=== PATIENT | male | born 1995 | race Caucasian/White ===

== ENCOUNTER → 2017-01-10 17:52 | Emergency (ER) | payer MEDICAID, OTHER ==
[2017-01-10 18:04] VITALS: BP 138/62
== END | disposition left against medical advice (07) ==
LOC: ED 17:52
DX: R10.30 Lower abdominal pain, unspecified (principal); Z53.21 Procedure and treatment not carried out due to patient leaving prior to being seen by health care provider

== ENCOUNTER 2017-08-03 15:20 | Emergency (ER) | payer MEDICAID, OTHER ==
--- NOTE | 2017-08-03 16:42 | UC ---
Knee Pain HPI - HPI Summary HPI Summary: 22 y/o male presents to the urgent care c/o Rt knee pain and swelling s/p slipping while carrying lifting furniture on 07/30/2017. Pt states his knee buckled and he fell. He took Ibuprofen, applied ice to alleviate symptoms. However today he was sitting and his RT lower leg felt numb with radiating pain to his knee. Pain is 8/10 with movement. Mild tingling over the medial side of the RT lower leg. Pt denies fever, SOB, chest pain, abdominal pain, N/V/D. - History of Current Complaint Chief Complaint: UCRespiratory Stated Complaint: knee injury Time Seen by Provider: 08/03/17 16:32 Hx Obtained From: Patient Onset/Duration: Sudden Onset, Lasting Days - 5 days, Still Present, Worse Since - today Severity Initially: Moderate Severity Currently: Moderate Pain Intensity: 8 Pain Scale Used: 0-10 Numeric Character: Sharp Aggravating Factor(s): Movement, Prolonged Standing, Stairs Alleviating Factor(s): Rest, OTC Meds Associated Signs And Symptoms: Positive: Numbness, Tingling - medial side of RT lower leg. Negative: Swelling, Redness, Bruising, Fever, Weakness Able to Bear Weight: Yes - Risk Factors Septic Arthritis Risk Factor: Negative Gout Risk Factor: Negative - Allergies/Home Medications Allergies/Adverse Reactions: Allergies Allergy/AdvReac Type Severity Reaction Status Date / Time Cefuroxime [From Ceftin] Allergy Unknown Unknown Verified 08/03/17 15:32 Reaction Details Home Medications: Home Medications Acetaminophen [APAP] 325 mg PO Q6H PRN 08/03/17 [History Confirmed 08/03/17] PMH/Surg Hx/FS Hx/Imm Hx Previously Healthy: Yes Psychological History: Bipolar Disorder Other Psychological History: ADHD - Surgical History Surgical History: Yes Surgery Procedure, Year, and Place: HERNIA [facility] - Family History Known Family History: Positive: Cardiac Disease, Hypertension, Diabetes Family History: No FHx GERD - Social History Occupation: Employed Full-time Lives: With Family Alcohol Use: None Substance Use Type: None Smoking Status (MU): Never Smoked Tobacco Review of Systems Constitutional: Negative Skin: Negative Eyes: Negative ENT: Negative Respiratory: Negative Cardiovascular: Negative Gastrointestinal: Negative Genitourinary: Negative Motor: Negative Neurovascular: Negative - RT knee Musculoskeletal: Decreased ROM, Other: - RT knee pain, swelling s/p slipping Neurological: Negative Psychological: Negative Is Patient Immunocompromised?: No All Other Systems Reviewed And Are Negative: Yes Physical Exam Triage Information Reviewed: Yes Vital Signs: Initial Vital Signs Temp 98.0 F 08/03/17 15:27 Pulse 68 08/03/17 15:27 Resp 16 08/03/17 15:27 BP 109/69 08/03/17 15:27 Pulse Ox 100 08/03/17 15:27 - Additional Comments Vital Signs Reviewed: Yes General: well developed, well nourished male sitting in the examining table w/o any apparent distress Eyes: Positive: Conjunctiva Clear - PERRLA, EOMI, fundi grossly normal ENT: Positive: Normal ENT inspection, Hearing grossly normal, Pharynx normal, TMs normal Neck: Positive: Supple, Nontender, No Lymphadenopathy Respiratory: Positive: Chest nontender, Lungs clear, Normal breath sounds, No respiratory distress Cardiovascular: Positive: RRR, No Murmur, Pulses Normal, Brisk Capillary Refill Abdomen Description: Positive: Nontender, No Organomegaly, Soft. Negative: CVA Tenderness (R), CVA Tenderness (L) Bowel Sounds: Positive: Present Musculoskeletal: Positive: Strength Intact, No Edema, Other: - Knee: Pt is able to bear weight and ambulate with mild limping. No surface trauma, soft tissue swelling, or obvious effusion. No overlying erythema or warmth. The RT knee is without obvious asymmetry or deformity when compared with the LF knee. Decreased ROM of RT knee due to pain. No tenderness to palpation of the patella , no effusion or ballottement. No tenderness over the infrapatellar tendon. Point tenderness over the medial joint line, No tenderness over the proximal fibular head, No tenderness, fullness or mass of the popliteal fossa. No quadriceps tenderness. No laxity of the ACL. PCL, MCL, or LCL. no collateral ligament laxity to valgus or varus stress. Negative Eze/Drawer sign. Negative Erlinda. Distal motor and neurovascular status intact. Neurological Exam: Normal Psychological Exam: Normal Skin Exam: Normal Knee Pain Course/Dx - Course Course Of Treatment: 22 y/o male presents to the urgent care c/o Rt knee pain and swelling s/p slipping while carrying lifting furniture on 07/30/2017. Pt states his knee buckled and he fell. He took Ibuprofen, applied ice to alleviate symptoms. However today he was sitting and his RT lower leg felt numb with radiating pain to his knee. Pain is 8/10 with movement. Mild tingling over the medial side of the RT lower leg. Pt denies fever, SOB, chest pain, abdominal pain, N/V/D.Hx obtained. RT kneee X-ray ordered: No frqacture of Rt knee noted as per radilogist. Pt's knee immobilized with knee immobilizer since PT feeling numbness. Rx Naproxen PO for pain. Advised RICE. Avoid strenuous exercise or standing for long period of time. If not improvement of symptoms to f/u with Orthopedic Dr Saxena or PCP in 1 week for further evaluation and treatment. PT understood and agreed with D/C instructions. - Differential Dx/Diagnosis Differential Diagnosis/HQI/PQRI: Abrasion, Contusion, Fracture (Closed), Internal Derangement Of Knee, Patellofemoral Syndrome, Sprain, Strain, Tendonitis Provider Diagnoses: 1 Acute RT knee pain s/p injury Discharge - Discharge Plan Condition: Stable Disposition: HOME Prescriptions: Naproxen [Naproxen 500 mg] 500 mg PO Q8H PRN #30 tab PRN Reason: Pain Patient Education Materials: Knee Sprain (ED) Forms: *Work Release Referrals: [facility] [Outside] - 3 Days Avelino Saxena MD [Medical Doctor] - 3 Days Additional Instructions: 1-Please take medications as directed to alleviate pain and swelling. 2-Please apply ice, keep your knee immobilized with the splint. 3- Please f/u with Orthopedic or your PCP in 3 days if not improvement of symptoms for further evaluation and treatment.
[2017-08-03] MEDS ORDERED: Naproxen TAB* 250 MG PO ONE (16:44)
[2017-08-03 17:33] VITALS: BP 126/64
--- NOTE | 2017-08-03 17:33 | RAD ---
Indication: Right knee pain. 4 views of the right knee demonstrates no fracture. No other bone or joint abnormality is identified. IMPRESSION: No fracture of the right knee is noted.
== END 2017-08-03 18:10 | disposition home or self-care (01) ==
LOC: UCEAST 15:20
DX: M25.561 Pain in right knee (principal); R20.0 Anesthesia of skin; R20.2 Paresthesia of skin; F31.9 Bipolar disorder, unspecified; F90.9 Attention-deficit hyperactivity disorder, unspecified type; Z88.1 Allergy status to other antibiotic agents
CPT/HCPCS: 99213; A9270-GY; G0463

== ENCOUNTER 2019-01-08 15:20 | Emergency (ER) | payer OTHER ==
[2019-01-08 15:40] VITALS: BP 129/65
--- NOTE | 2019-01-08 16:14 | UC ---
Lower Extremity/Ankle HPI - HPI Summary HPI Summary: 23-year-old male presents with sudden onset of sharp, tearing right groin pain while running 2 nights ago. States pain was initially so severe caused him to fall to the ground. No injuries from the fall. States he was immediately able to walk and bear weight on it although with pain. States pain is constant but minimal while resting and worsens with any type of walking or weightbearing. Denies abdominal pain, testicular pain or swelling, dysuria, frequency, urgency , hematuria, weakness, numbness, or tingling. - History of Current Complaint Chief Complaint: UCGeneralIllness Stated Complaint: RT LEG INJURY Time Seen by Provider: 01/08/19 15:36 Hx Obtained From: Patient Pain Intensity: 6 - Allergies/Home Medications Allergies/Adverse Reactions: Allergies Allergy/AdvReac Type Severity Reaction Status Date / Time cefuroxime [From Ceftin] Allergy Severe Swelling Verified 01/08/19 15:40 PMH/Surg Hx/FS Hx/Imm Hx Previously Healthy: Yes - Denies significant PMH - Surgical History Surgical History: Yes Surgery Procedure, Year, and Place: H[facility]IA [facility] - Family History Known Family History: Positive: Cardiac Disease, Hypertension, Diabetes, Other - positive for FMH of contusion Family History: No FHx GERD - Social History Occupation: Employed Full-time Lives: With Family Alcohol Use: Rare Substance Use Type: None Smoking Status (MU): Light Every Day Tobacco Smoker Review of Systems All Other Systems Reviewed And Are Negative: Yes Constitutional: Positive: Negative Skin: Positive: Negative Respiratory: Positive: Negative Cardiovascular: Positive: Negative Gastrointestinal: Positive: Negative Genitourinary: Positive: Negative Motor: Negative: Weakness Neurovascular: Negative: Decreased Sensation Musculoskeletal: Positive: Myalgia - See HPI Neurological: Positive: Negative Is Patient Immunocompromised?: No Physical Exam - Summary Physical Exam Summary: GENERAL APPEARANCE: Well developed, well nourished, alert and cooperative, and appears to be in no acute distress. CARDIAC: Normal S1 and S2. No S3, S4 or murmurs. Rhythm is regular. There is no peripheral edema, cyanosis or pallor. Extremities are warm and well perfused. Capillary refill is less than 2 seconds. Peripheral pulses intact. LUNGS: Clear to auscultation without rales, rhonchi, wheezing or diminished breath sounds. ABDOMEN: Positive bowel sounds. Soft, nondistended, nontender. No guarding or rebound. No masses or hepatosplenomegally. MUSKULOSKELETAL: ROM intact to all extremities. No joint erythema or tenderness. Normal muscular development. Tenderness with palpation over the right proximal sartorius without gross deformity or spasm. Limping gait. Circulation and sensation intact. SKIN: Skin normal color, texture and turgor with no lesions or eruptions. Triage Information Reviewed: Yes Vital Signs: Initial Vital Signs Temp 98.9 F 01/08/19 15:35 Pulse 62 01/08/19 15:35 Resp 12 01/08/19 15:35 BP 129/65 01/08/19 15:35 Pulse Ox 99 01/08/19 15:35 Vital Signs Reviewed: Yes Lower Extremity Course/Dx - Course Course Of Treatment: 23-year-old male presents with sudden onset of sharp, tearing right groin pain while running 2 nights ago. States pain was initially so severe caused him to fall to the ground. No injuries from the fall. States he was immediately able to walk and bear weight on it although with pain. States pain is constant but minimal while resting and worsens with any type of walking or weightbearing. Denies abdominal pain, testicular pain or swelling, dysuria, frequency, urgency , hematuria, weakness, numbness, or tingling. Afebrile. Vital signs stable. Patient had tenderness with palpation over the right proximal sartorius without gross deformity or spasm. Limping gait. Circulation and sensation intact. Remainder of exam was unremarkable. Recommending conservative treatment for a muscle strain. Patient is to follow-up with sports medicine in 5 days if symptoms do not improve anticipatory guidance and warning symptoms reviewed with the patient. Verbalizes understanding and agrees with plan of care. - Differential Dx/Diagnosis Differential Diagnosis/HQI/PQRI: Contusion, Phlebitis, Strain, Tenosynovitis Provider Diagnosis: Strain of muscle of right groin region Discharge - Sign-Out/Discharge Documenting (check all that apply): Patient Departure All imaging exams completed and their final reports reviewed: No Studies - Discharge Plan Condition: Stable Disposition: HOME Patient Education Materials: Muscle Strain (ED) Forms: *Work Release Referrals: No Primary Care Phys,NOPCP [Primary Care Provider] - Chris Dawson MD [Medical Doctor] - Additional Instructions: Your history and exam are consistent with a muscle strain. Rest the leg as much as possible. You may continue to walk and bear weight but should avoid strenuous activities or activities that cause pain. Apply ice to the affected area for 15-20 minutes at least 4 times a day to help with the pain and swelling. Elevate the leg to help reduce swelling. Take acetaminophen (Tylenol) or ibuprofen (Advil, Motrin) according to directions as needed for pain. Follow up with Sports Medicine in 5 days if symptoms do not improve. Seek immediate medical attention if you have severe pain not managed with pain medication, you are unable to walk or bear any weight, develop numbness or tingling in the leg, foot, or toes, or have any worsening of symptoms. - Billing Disposition and Condition Condition: STABLE Disposition: Home
== END 2019-01-08 16:25 | disposition home or self-care (01) ==
LOC: UCEAST 15:20
DX: S76.811A Strain of other specified muscles, fascia and tendons at thigh level, right thigh, initial encounter (principal); Y93.02 Activity, running; Y92.9 Unspecified place or not applicable; F17.210 Nicotine dependence, cigarettes, uncomplicated
CPT/HCPCS: 99211; G0463

== ENCOUNTER 2019-03-15 22:18 | Emergency (ER) | payer OTHER ==
--- NOTE | 2019-03-15 22:46 | ED ---
Back Pain - HPI Summary HPI Summary: This patient is a 23 year old M presenting to [facility] accompanied by mother with a chief complaint of back pain since 02/08/19. Pt works at [employer]. On 02/08/19, pt hurt his back, as he caught falling resident because he didnt want her to hit head. As he caught the pt, he felt a sharp pain in lower back. Pt had off from work. He was feeling little better in the morning, but over the day the pain worsened. Then when he went into work on 02/10/19, he was in so much pain that it affected his ability to do his work. Pt went to [facility] on 02/11/19 and they told him he may have a herniated disk, and prescribed him pain medication. Pt finds it very painful to walk. Today, when pt went to get a glass of water, he was holding himself up by his surroundings. On his way back to the bedroom his legs gave out and he had to catch himself on wall. Patient reports pain sensation in legs (electric pulse going through. Patient denies incontinence. Pt has no medical problem, and no PMHx of back issues. Pt has a FHx of slip disc. Per triage, the patient rates the pain 8/10 in severity. - History of Current Complaint Chief Complaint: EDBackInjuryPain Stated Complaint: BACK INJURY PER PT Time Seen by Provider: 03/15/19 22:36 Hx Obtained From: Patient Onset/Duration: Gradual Onset, Lasting Days, Still Present Onset/Duration: Started Days Ago, Still Present Timing: Constant, Lasting Days Back Pain Location: Is Diffuse Severity Initially: Moderate Severity Currently: Severe Pain Intensity: 8 Pain Scale Used: 0-10 Numeric Character: Sharp Aggravating Symptom(s): Walking Alleviating Symptom(s): Nothing Associated Signs And Symptoms: Positive: Other - pain sensation in legs. Negative: Bladder Incontinence, Bowel Incontinence - Allergies/Home Medications Allergies/Adverse Reactions: Allergies Allergy/AdvReac Type Severity Reaction Status Date / Time cefuroxime [From Ceftin] Allergy Severe Swelling Verified 01/08/19 15:40 Home Medications: Home Medications Cyclobenzaprine TAB* [Flexeril 10 MG TAB*] 10 mg PO TID PRN 03/15/19 [History Confirmed 03/15/19] Naproxen 500 mg PO BID 03/15/19 [History Confirmed 03/15/19] PMH/Surg Hx/FS Hx/Imm Hx Endocrine/Hematology History: Denies: Hx Diabetes, Hx Thyroid Disease Cardiovascular History: Denies: Hx Hypertension, Hx Pacemaker/ICD Respiratory History: Reports: Hx Asthma - as a child Denies: Hx Chronic Obstructive Pulmonary Disease (COPD) GI History: Denies: Hx Ulcer Sensory History: Denies: Hx Hearing Aid Psychiatric History: Reports: Hx Bipolar Disorder Denies: Hx Panic Disorder - Surgical History Surgery Procedure, Year, and Place: HERNIA AN Infectious Disease History: No Infectious Disease History: Denies: Hx Hepatitis, Hx Human Immunodeficiency Virus (HIV), History Other Infectious Disease, Traveled Outside the [place] in Last 30 Days - Family History Known Family History: Positive: Cardiac Disease, Hypertension, Diabetes, Other - positive for FMH of contusion Family History: No FHx GERD - Social History Occupation: Employed Full-time Alcohol Use: Rare Hx Substance Use: No Substance Use Type: Reports: None Hx Tobacco Use: No Smoking Status (MU): Light Every Day Tobacco Smoker Review of Systems Positive: Other - Back pain, pain sensation in legs Negative: incontinence All Other Systems Reviewed And Are Negative: Yes Physical Exam - Summary Physical Exam Summary: Appearance: Well-appearing, Well-nourished, lying in bed comfortably Skin: Warm, dry, no obvious rash Eyes: sclera anicteric, no conjunctival pallor ENT: mucous membranes moist, pharynx appears normal Neck: Supple, nontender Respiratory: Clear to auscultation, no signs of respiratory distress Cardiovascular: Normal S1, S2. No murmurs. Normal distal pulses in tibial and radial bilaterally. Abdomen: Soft, nontender, normal active bowel sounds present Musculoskeletal: Normal, Strength/ROM Intact Neurological: A&Ox3, awake and alert, mentation is normal, speech is fluent and appropriate; reflexes of knee are 2+ and symmetric; no clonus of ankle; no gross sensory deficits or motor deficits. Psychiatric: affect is normal, does not appear anxious or depressed Triage Information Reviewed: Yes Vital Signs On Initial Exam: Initial Vitals Temp Pulse Resp BP Pulse Ox 98.7 F 68 16 140/70 99 03/15/19 22:20 03/15/19 22:20 03/15/19 22:20 03/15/19 22:20 03/15/19 22:20 Vital Signs Reviewed: Yes Diagnostics - Vital Signs Vital Signs Temp Pulse Resp BP Pulse Ox 03/15/19 22:20 98.7 F 68 16 140/70 99 - Laboratory Lab Statement: Any lab studies that have been ordered have been reviewed, and results considered in the medical decision making process. Back Pain Course/Dx - Course Course Of Treatment: This patient is a 23 year old M presenting to [facility] accompanied by mother with a chief complaint of back pain since 02/08/19. Pt works at [employer]. On 02/08/19, pt hurt his back, as he caught falling resident because he didnt want her to hit head. As he caught the pt, he felt a sharp pain in lower back. Pt had 02/09/19 off from work. He was feeling little better in the morning, but over the day the pain worsened. Then when he went into work on 02/10/19, he was in so much pain that it affected his ability to do his work. Pt went to [place] [facility] on 02/11/19 and they told him he may have a herniated disk, and prescribed him pain medication. Pt finds it very painful to walk. Today, when pt went to get a glass of water, he was holding himself up by his surroundings. On his way back to the bedroom his legs gave out and he had to catch himself on wall. Patient reports pain sensation in legs (electric pulse going through. Patient denies incontinence. Pt has no PMHx of back issues.. Per triage, the patient rates the pain 8/10 in severity. Physical exam findings are nml. Patient will be discharged with follow up from PCP. The patient is agreeable with this plan. - Diagnoses Provider Diagnoses: Lumbar strain Discharge ED - Sign-Out/Discharge Documenting (check all that apply): Patient Departure - Discharge Patient Received Moderate/Deep Sedation with Procedure: No - Discharge Plan Condition: Good Disposition: HOME Prescriptions: oxyCODONE/Acetamin 5/325 MG* [Percocet 5/325 TAB*] 2 tab PO Q4H PRN #20 tab MDD 6 PRN Reason: Pain - Severe Patient Education Materials: Low Back Strain (ED) Forms: *Work Release Referrals: Charanjit Germain MD [Medical Doctor] - As Soon As Possible - Billing Disposition and Condition Condition: GOOD Disposition: Home - Attestation Statements Document Initiated by Guillaume: Yes Documenting Scribe: Louann Ruiz Provider For Whom Guillaume is Documenting (Include Credential): Jon Clark MD Scribe Attestation: Louann Wang, scribed for Jon Clark MD on 03/16/19 at 0514. Scribe Documentation Reviewed: Yes Provider Attestation: The documentation as recorded by the Louann carranza accurately reflects the service I personally performed and the decisions made by me, Jon Clark MD Status of Scribe Document: Viewed
[2019-03-16 00:06] VITALS: BP 120/65
== END 2019-03-16 00:05 | disposition home or self-care (01) ==
LOC: ED 22:18
DX: S39.012A Strain of muscle, fascia and tendon of lower back, initial encounter (principal); X50.9XXA Other and unspecified overexertion or strenuous movements or postures, initial encounter; Y92.89 Other specified places as the place of occurrence of the external cause; Y99.0 Civilian activity done for income or pay; J45.909 Unspecified asthma, uncomplicated; F31.9 Bipolar disorder, unspecified; F17.200 Nicotine dependence, unspecified, uncomplicated; Z79.899 Other long term (current) drug therapy; Z88.1 Allergy status to other antibiotic agents
CPT/HCPCS: 99282

== ENCOUNTER 2019-05-05 15:45 | Emergency (ER) | payer OTHER ==
--- NOTE | 2019-05-05 16:11 | ED ---
Back Pain - HPI Summary HPI Summary: 24 yo male presents to [facility] ED with low back pain. He tells me that in early march he injured his lower back at work. 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 He was seen around that time in the ED for this and was prescribed percocet, which he took with little relief. He was referred to Occupational medicine and reports that he saw them about a week or two ago, XRs were done and revealed scoliosis, and was released back to work and does not have a f/u. Says pain never resolved. He has done PT, taken flexeril and naproxen with no relief. He is here today with continued lower back pain radiating into both of his legs. He endorses some intermittently tingling in all of his toes bilaterally, but no where else. He denies abdominal pain, n/v, saddle anesthesia, or loss of bowel/ bladder control. No new injury - History of Current Complaint Chief Complaint: EDBackInjuryPain Stated Complaint: BACK PAIN PER PT Time Seen by Provider: 05/05/19 16:11 Hx Obtained From: Patient Onset/Duration: Sudden Onset Severity Initially: Severe Severity Currently: Severe Pain Intensity: 8 Pain Scale Used: 0-10 Numeric - Allergies/Home Medications Allergies/Adverse Reactions: Allergies Allergy/AdvReac Type Severity Reaction Status Date / Time cefuroxime [From Ceftin] Allergy Severe Swelling Verified 05/05/19 16:01 PMH/Surg Hx/FS Hx/Imm Hx Endocrine/Hematology History: Denies: Hx Diabetes, Hx Thyroid Disease Cardiovascular History: Denies: Hx Hypertension, Hx Pacemaker/ICD Respiratory History: Reports: Hx Asthma - as a child Denies: Hx Chronic Obstructive Pulmonary Disease (COPD) GI History: Denies: Hx Ulcer Sensory History: Denies: Hx Hearing Aid Psychiatric History: Reports: Hx Bipolar Disorder Denies: Hx Panic Disorder - Surgical History Surgical History: Yes Surgery Procedure, Year, and Place: HERNIA AN Infectious Disease History: No Infectious Disease History: Denies: Hx Hepatitis, Hx Human Immunodeficiency Virus (HIV), History Other Infectious Disease, Traveled Outside the [place] in Last 30 Days - Family History Known Family History: Positive: Cardiac Disease, Hypertension, Diabetes, Other - positive for FMH of contusion Family History: No FHx GERD - Social History Occupation: Employed Full-time Lives: With Family Alcohol Use: Rare Hx Substance Use: No Substance Use Type: Reports: None Hx Tobacco Use: No Smoking Status (MU): Light Every Day Tobacco Smoker Review of Systems Constitutional: Negative Cardiovascular: Negative Respiratory: Negative Gastrointestinal: Negative Genitourinary: Negative Musculoskeletal: Other - Low back pain Skin: Negative Neurological: Negative Psychological: Normal All Other Systems Reviewed And Are Negative: No Physical Exam - Summary Physical Exam Summary: GENERAL: NAD. WDWN. No pain distress. SKIN: No rashes, sores, lesions, or open wounds. NECK: Supple. FROM. Nontender. No lymphadenopathy. CHEST: CTAB. No r/r/w. No accessory muscle use. Breathing comfortably and in no distress. CV: RRR. Pulses intact. Cap refill <2seconds MSK: TTP over lumbar paraspinal muscles. Pain with flexion and extension of spine. Positive SLR b/l for low back pain without radiation. Strength 5/5 B/L LEs including dorsiflexion and plantar flexion. FROM B/L LEs. No edema. NEURO: Alert. Sensations intact B/L LEs L3-S1. Reflexes intact PSYCH: Age appropriate behavior. Triage Information Reviewed: Yes Vital Signs On Initial Exam: Initial Vitals Temp Pulse Resp BP Pulse Ox 99.2 F 55 16 126/70 99 05/05/19 15:58 05/05/19 15:58 05/05/19 15:58 05/05/19 15:58 05/05/19 15:58 Vital Signs Reviewed: Yes Procedures - Sedation Patient Received Moderate/Deep Sedation with Procedure: No Diagnostics - Vital Signs Vital Signs Temp Pulse Resp BP Pulse Ox 05/05/19 15:58 99.2 F 55 16 126/70 99 - Laboratory Lab Statement: Any lab studies that have been ordered have been reviewed, and results considered in the medical decision making process. Back Pain Course/Dx - Course Course Of Treatment: Suspect continued low back pain from his injury at work. He was given toradol IM and dexamethasone in the ED for his pain. Will rx for robaxin and prednisone and strongly encouraged him to f/u with Occupational Medicine for continued management. Pt voiced understanding and agrees with the plan - Diagnoses Provider Diagnoses: Low back pain Discharge ED - Sign-Out/Discharge Documenting (check all that apply): Patient Departure - Discharge Plan Condition: Stable Disposition: HOME Prescriptions: Methocarbamol TAB* [Robaxin 500 MG TAB*] 1,000 mg PO TID PRN #42 tab PRN Reason: Pain - Moderate predniSONE TAB* [Deltasone 20 MG TAB*] 60 mg PO DAILY #14 tab Patient Education Materials: Back Pain (ED) Referrals: No Primary Care Phys,NOPCP [Primary Care Provider] - Charanjit Germain MD [Medical Doctor] - 1 Day Additional Instructions: If you develop a fever, shortness of breath, chest pain, new or worsening symptoms - please call your PCP or go to the ED immediately. 1) Please start taking the PREDNISONE tomorrow as you were given a dose this evening 2) I recommend that you rest and apply ice/heat to your back intermittently throughout the day to decrease pain 3) Please call Dr. Germain of Worker's Comp/Occupational Medicine to schedule an appointment for a recheck this week regarding your work related injury - Billing Disposition and Condition Condition: STABLE Disposition: Home
--- OUTSIDE RECORDS SUMMARY | 2019-05-05 16:38 | XMS REPORT | Summary of Care ---
:1995 Author Organization [facility] Address [address] [address] Care Team Providers Name Role Phone Jez Cortez MD Primary Care Provider Reason for Referral Refer to Department Only (Routine) Status Reason Specialty Diagnoses / Referred By Referred To Procedures Contact Contact Pending Review Occupational Diagnoses Lumbar spine strain, initial encounter Lavell Simms Medicine MD [address] [place] [address] Refer to Department Only (Routine) Status Reason Specialty Diagnoses / Referred By Referred To Procedures Contact Contact Pending Review Physical Therapy Diagnoses Lumbar spine strain, initial encounter Lavell Simms MD [address] [place] [address] Reason for Visit Reason Comments New Patient Low back pain. DOI: 03-11-19. Patient was transporting a resident and the wheels locked up and the resident started to go down, but the patient caught the patient injuring his low back. Was seen by both [facility] and [facility] - neither did x-rays. Worker's Compensation [facility] - DOI: 03-11-19 Encounter Details Date Type Department Care Team Description 03/24/2019 Office Visit [facility] - Lavell Simms MD Lumbar spine strain, [address] initial encounter [address] [facility] B (Primary Dx) [facility] [place] [address] [place] [address] [phone] Allergies Active Allergy Reactions Severity Noted Date Comments Cefuroxime Anaphylaxis 02/02/2010 Stated by pts mother (Lenore) his tongue and throat swells documented as of this encounter (statuses as of 03/24/2019) Medications Medication Sig Dispensed Refills Start End Date Status Date OXYcodone-acetaminop Take 1 Tab by 28 Tab 0 Active hen (PERCOCET) 5-325 mouth EVERY 7 MG Oral Tab FOUR HOURS NEEDED for Pain. Max Daily Amount: 6 Tabs. risperidone Take 4 mg by 0 03/24/20 Discontinued (RISPERDAL) 4 MG mouth TWICE 19 (Patient stopped Oral Tab DAILY. the medication) sertraline (ZOLOFT) Take 50 mg by 0 03/24/20 Discontinued 50 MG Oral Tab mouth DAILY. 19 (Patient stopped the medication) Methylphenidate HCl Take 60 mg by 0 03/24/20 Discontinued (METADATE CD) 20 MG mouth DAILY. 19 (Patient stopped Oral Cap CR Pt states the medication) taking 40 mg in morning and 20 mg at night predniSONE Take 10 mg by 0 03/24/20 Discontinued (DELTASONE) 10 MG mouth DAILY. 0 19 (Patient stopped Oral Tab the medication) EPINEPHrine (EPIPEN) by Injection 0 03/24/20 Discontinued 0.3 MG/0.3ML route 19 (Patient stopped Injection Device NEEDED. the medication) hydrOXYzine HCL Take 50 mg by 0 03/24/20 Discontinued (ATARAX) 50 MG Oral mouth THREE 19 (Patient stopped Tab TIMES DAILY the medication) NEEDED. diclofenac EC Take 75 mg by 30 Tab 0 03/24/20 Discontinued (VOLTAREN) 75 MG mouth TWO 7 19 (Patient stopped Oral Tab EC TIMES DAILY the medication) NEEDED (as needed for mild to moderate pain). documented as of this encounter (statuses as of 03/24/2019) Active Problems Problem Noted Date Pain in joint, forearm 04/15/2011 Pain in heel 12/23/2009 Overview: Replaced inactive diagnosis Injury, other and unspecified, unspecified site 08/05/2006 Fever and other physiologic disturbances of temperature regulation 05/27/2005 Other general symptoms(780.99) 12/19/2004 Injury of face and neck 12/09/2004 documented as of this encounter (statuses as of 03/24/2019) Immunizations Name Administration Dates Next Due TDAP Vaccine 09/30/2015 documented as of this encounter Social History Tobacco Use Types Packs/Day Years Used Date Current Some Day Smoker Smokeless Tobacco: Current User Chew Comments: occassional Alcohol Use Drinks/Week oz/Week Comments No Sex Assigned at Date Recorded Not on file Job Start Date Occupation Industry Not on file Not on file Not on file Travel History Travel Start Travel End No recent travel history available. documented as of this encounter Last Filed Vital Signs Vital Sign Reading Time Taken Comments Blood Pressure 121/67 03/24/2019 3:09 PM EDT Pulse 85 03/24/2019 3:09 PM EDT Temperature - - Respiratory Rate - - Oxygen Saturation - - Inhaled Oxygen Concentration - - Weight 74.8 kg (165 lb) 03/24/2019 3:09 PM EDT Height 182.9 cm (6') 03/24/2019 3:09 PM EDT Body Mass Index 22.38 03/24/2019 3:09 PM EDT documented in this encounter Progress Notes Lavell Simms MD - 03/24/2019 4:15 PM EDT Name: Luis E Jack : 1995 Date of Service: 03/24/2019 Referring Provider: Karon Denton Primary Care Provider: Jez Cortez Chief Complaint Patient presents with New Patient Low back pain. DOI: 03-11-19. Patient was transporting a resident and the wheels locked up and the resident started to go down, but the patient caught the patient injuring his low back. Was seen by both [facility] and [facility] - neither did x-rays. Worker's Compensation [facility] - DOI: 03-11-19 Past Medical History: Diagnosis Date Closed fracture dislocation of ankle joint Past Surgical History: Procedure Laterality Date REPAIR OF HERNIA 1997 Current Outpatient Medications Medication Sig OXYcodone-acetaminophen (PERCOCET) 5-325 MG Oral Tab Take 1 Tab by mouth EVERY FOUR HOURS ASNEEDED for Pain. Max Daily Amount: 6 Tabs. No current facility-administered medications for this visit. Allergies Allergen Reactions Ceftin [Cefuroxime] Anaphylaxis Stated by pts mother (Lenore) his tongue and throat swells Social History Socioeconomic History Marital status: Single Spouse name: Not on file Number of children: Not on file Years of education: Not on file Highest education level: Not on file Occupational History Not on file Social Needs Financial resource strain: Not on file Food insecurity: Worry: Not on file Inability: Not on file Transportation needs: Medical: Not on file Non-medical: Not on file Tobacco Use Smoking status: Current Some Day Smoker Smokeless tobacco: Current User Types: Chew Tobacco comment: occassional Substance and Sexual Activity Alcohol use: No Drug use: No Sexual activity: Never Lifestyle Physical activity: Days per week: Not on file Minutes per session: Not on file Stress: Not on file Relationships Social connections: Talks on phone: Not on file Gets together: Not on file Attends mu-ism service: Not on file Active member of club or organization: Not on file Attends meetings of clubs or organizations: Not on file Relationship status: Not on file Intimate partner violence: Fear of current or ex partner: Not on file Emotionally abused: Not on file Physically abused: Not on file Forced sexual activity: Not on file Other Topics Concern Not on file Social History Narrative Not on file Family History Problem Relation Age of Onset Arthritis Maternal Grandmother Cancer Maternal Grandmother Hypertension Maternal Grandmother Arthritis Maternal Grandfather Cancer Maternal Grandfather Diabetes Maternal Grandfather Hypertension Maternal Grandfather Anesth Problems No family history Clotting Disorder No family history Heart Disease No family history Kidney Disease No family history Thyroid Disease No family history ROS: Review of systems intake completed by clinical staff. I have reviewed and agree with their documentation. 23-year-old man with furred by Karon Denton evaluation of low back pain. 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 Complains of severe bilateral low back pain. Se[facility] at [facility] and subsequently at [facility]. Treated with pain medicine and muscle relaxers. Patient has continued to work with restrictions of no lifting more than 10 pounds. However, patient reports that at the alf there insisting that he lift more than this amount of weight. No radicular symptoms. Patient denies previous back problems other than occasional backache. Physical exam shows a healthy-appearing man in no acute distress. Alert and oriented. Holds back in a stiff fashion. Bilateral lower back tenderness paralumbar musculature. Straight leg raising negative. Grossly no focal motor or sensory deficits lower extremities. X-rays of lumbar spine show mild curvature lumbar spine. Question of mild spondylolisthesis at L5-S1. Impression: Lumbar strain acute secondary to work injury as above. Plan: Work restrictions forms filled out. Will refer to occupational medicine for evaluation and take over care. Physical therapy. Impression: ICD-9-CM ICD-10-CM 1. Lumbar spine strain, initial encounter 847.2 S39.012A REFER TO PHYSICAL THERAPY / REHAB XR LUMBAR SPINE MIN 4 VIEWS (STANDARD) REFER TO OCCUPATIONAL MEDICINE Author: Lavell Simms MD 03/24/2019 15:31 This record contains sections created with voice recognition software. It has been electronically signed. A reasonable attempt at proofreading has been made. Please call with any questions or corrections. documented in this encounter Plan of Treatment Name Type Priority Associated Diagnoses Date/Time XR LUMBAR SPINE MIN 4 Imaging Routine Lumbar spine strain, 03/24/2019 3: 31 PM EDT VIEWS (STANDARD) initial encounter Name Type Priority Associated Diagnoses Order Schedule XR LUMBAR SPINE MIN 4 Imaging Routine Lumbar spine strain, Expected: 2018, VIEWS (STANDARD) initial encounter Expires: 03/23/2020 Name Type Priority Associated Diagnoses Order Schedule REFER TO PHYSICAL THERAPY Referral Routine Lumbar spine strain, Ordered: / REHAB initial encounter REFER TO OCCUPATIONAL Referral Routine Lumbar spine strain, Expected: MEDICINE initial encounter 03/24/2019, Expires: 03/24/2020 Health Maintenance Due Date Last Done Comments PNEUMOCOCCAL 0-64 YRS (1 of 1 - 2003 PPSV23) DEPRESSION SCREENING 2009 HIV SCREENING 2012 HPV IMMUNIZATION SERIES (1 - Male 2012 3-dose series) INFLUENZA VACCINE (#1) 2019 MENINGOCOCCAL VACCINE IMM Aged Out No longer eligible based on patient's age to complete this topic documented as of this encounter Results Not on filedocumented in this encounter Visit Diagnoses Diagnosis Lumbar spine strain, initial encounter - Primary documented in this encounter Insurance Payer Benefit Plan Subscriber ID Effective Dates Phone Address Type / Group WC [employer] xx xxxxxxxxx 2018-Bro Workers Comp INSURANCE [facility] t - [place] [phone] (Work) documented as of this encounter
[2019-05-05] MEDS ORDERED: Ketorolac *IM* INJ* 60 MG/2 ML VIAL IM ONE (17:03)
[2019-05-05] MEDS ORDERED: Dexamethasone TAB* 4 MG PO ONE (17:03)
[2019-05-05 18:29] VITALS: BP 134/84
== END 2019-05-05 18:26 | disposition home or self-care (01) ==
LOC: ED 15:45
DX: M54.5 Low back pain (principal); F17.200 Nicotine dependence, unspecified, uncomplicated; Z88.1 Allergy status to other antibiotic agents
CPT/HCPCS: 96372; 99282; J1885; J8540

== ENCOUNTER 2019-08-19 10:31 | Emergency (ER) | payer SELFPAY ==
[2019-08-19 11:56] LABS: Influenza A Molecular Negative (Negative); Influenza B Molecular Negative (Negative)
[2019-08-19] MEDS ORDERED: Acetaminophen TAB* 325 MG PO ONE (12:48)
[2019-08-19] MEDS ORDERED: Ondansetron ODT TAB* 4 MG SL ONE (12:48)
[2019-08-19] MEDS ORDERED: GuaiFENesin DM 100 mg/10 mg in 5 ML UDC PO ONE (12:48)
[2019-08-19 13:54] VITALS: BP 101/70
--- NOTE | 2019-08-19 15:41 | ED ---
Influenza-Like Illness - HPI Summary HPI Summary: This patient is a 24-year-old male presenting to the ED with influenza-like symptoms. Patient states he has body aches throughout. Endorses cough and congestion. Endorses rhinorrhea and headache. Symptoms began yesterday. He denies any subjective fevers, sweats or chills. He denies any difficulty swallowing. Denies any shortness of breath or chest pain. He states he feels like he has the flu although denies any known sick contacts, however he works with a lot of people daily. He has never had this before. He did not get the flu vaccine this year. No history of PNA. No significant past medical history. - History of Current Complaint Chief Complaint: EDFluSymptoms Time Seen by Provider: 08/19/19 10:37 Hx Obtained From: Patient Onset/Duration: Sudden Onset Severity: Mild Associated Signs & Symptoms: Myalgia, Headache Related Hx: Possible Flu/Infectious Exposure - Risk Factors Influenza Risk Factors: Negative - Allergy/Home Medications Allergies/Adverse Reactions: Allergies Allergy/AdvReac Type Severity Reaction Status Date / Time cefuroxime [From Ceftin] Allergy Severe Swelling Verified 05/05/19 16:01 PMH/Surg Hx/FS Hx/Imm Hx Previously Healthy: Yes Endocrine/Hematology History: Denies: Hx Diabetes, Hx Thyroid Disease Cardiovascular History: Denies: Hx Hypertension, Hx Pacemaker/ICD Respiratory History: Reports: Hx Asthma - as a child Denies: Hx Chronic Obstructive Pulmonary Disease (COPD) GI History: Denies: Hx Ulcer Sensory History: Denies: Hx Hearing Aid Psychiatric History: Reports: Hx Bipolar Disorder Denies: Hx Panic Disorder - Surgical History Surgery Procedure, Year, and Place: HERNIA AN - Immunization History Hx Pertussis Vaccination: No Immunizations Up to Date: Yes Infectious Disease History: No Infectious Disease History: Denies: Hx Hepatitis, Hx Human Immunodeficiency Virus (HIV), History Other Infectious Disease, Traveled Outside the [place] in Last 30 Days - Family History Known Family History: Positive: Cardiac Disease, Hypertension, Diabetes, Other - positive for FMH of contusion Family History: No FHx GERD - Social History Occupation: Employed Full-time Lives: With Family Alcohol Use: Rare Hx Substance Use: No Substance Use Type: Reports: None Hx Tobacco Use: No Smoking Status (MU): Light Every Day Tobacco Smoker Review of Systems Positive: Fatigue. Negative: Fever, Chills, Skin Diaphoresis Negative: Sore Throat Negative: Palpitations, Chest Pain Positive: Cough. Negative: Shortness Of Breath Genitourinary: Negative Positive: no symptoms reported, see HPI Positive: Myalgia Skin: Negative Positive: Headache All Other Systems Reviewed And Are Negative: Yes Physical Exam Triage Information Reviewed: Yes Vital Signs On Initial Exam: Initial Vitals Temp Pulse Resp BP Pulse Ox 98.5 F 78 18 121/69 98 08/19/19 10:32 08/19/19 10:32 08/19/19 10:32 08/19/19 10:32 08/19/19 10:32 Vital Signs Reviewed: Yes Appearance: Positive: Well-Appearing, Well-Nourished Skin: Positive: Warm, Skin Color Reflects Adequate Perfusion Head/Face: Positive: Normal Head/Face Inspection Eyes: Positive: EOMI, KINGA, Conjunctiva Clear Neck: Positive: Supple, No Lymphadenopathy Respiratory/Lung Sounds: Positive: Clear to Auscultation, Breath Sounds Present Cardiovascular: Positive: Normal, RRR, Pulses are Symmetrical in both Upper and Lower Extremities Musculoskeletal: Positive: Normal, Strength/ROM Intact Neurological: Positive: Speech Normal Psychiatric: Positive: Normal, Affect/Mood Appropriate AVPU Assessment: Alert Procedures - Sedation Patient Received Moderate/Deep Sedation with Procedure: No Diagnostics - Vital Signs Vital Signs Temp Pulse Resp BP Pulse Ox 08/19/19 13:53 97.8 F 59 16 101/70 98 08/19/19 10:32 98.5 F 78 18 121/69 98 - Laboratory Lab Results: Lab Results 08/19/19 Range/Units 11:21 Influenza A (Rapid) Negative (Negative) Influenza B (Rapid) Negative (Negative) Lab Statement: Any lab studies that have been ordered have been reviewed, and results considered in the medical decision making process. Flu Symptom Course/Dx - Course Course Of Treatment: This patient is evaluated for influenza-like symptoms. Patient appears well on arrival. Lungs CTA, RRR. No pharyngeal erythema. TMs without erythema, positive cone of light. Influenza negative. Patient is given Zofran, guaifenesin, and acetaminophen with good relief. Patient will be taken off work for 2 days and is viral syndrome. - Diagnoses Differential Diagnosis/HQI/PQRI: Positive: Bronchitis, Influenza, Upper Respiratory Infection Provider Diagnoses: Viral syndrome Discharge ED - Sign-Out/Discharge Documenting (check all that apply): Patient Departure - Discharge Plan Condition: Stable Disposition: HOME Forms: *Work Release Referrals: No Primary Care Phys,NOPCP [Primary Care Provider] - Additional Instructions: Over the counter cough and flu medication for relief Rest Drink plenty of fluids - Billing Disposition and Condition Condition: STABLE Disposition: Home - Attestation Statements Provider Attestation: I was available for consult. This patient was seen by the JAYLA. The patient was not presented to, seen by, or examined by me. Neftali Lopez MD
== END 2019-08-19 13:53 | disposition home or self-care (01) ==
LOC: ED 10:31
DX: B34.9 Viral infection, unspecified (principal); F31.9 Bipolar disorder, unspecified; Z72.0 Tobacco use
CPT/HCPCS: 99282; A9270-GY

== ENCOUNTER 2019-08-20 06:54 | Emergency (ER) | payer SELFPAY ==
[2019-08-20] MEDS ORDERED: Tetracaine 0.5% OPTH.SOL 4 ML* 1 DROP BTL LEFT EYE ONE (07:21)
[2019-08-20] MEDS ORDERED: Fluorescein Sodium TOPICAL* 1 MG TEST STRIP OPHTHALMIC ONE (07:21)
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
[2019-08-20 08:05] VITALS: BP 124/72
== END 2019-08-20 08:10 | disposition home or self-care (01) ==
LOC: ED 06:54
DX: S05.02XA Injury of conjunctiva and corneal abrasion without foreign body, left eye, initial encounter (principal); W50.4XXA Accidental scratch by another person, initial encounter; Y92.9 Unspecified place or not applicable; Z88.1 Allergy status to other antibiotic agents; F17.200 Nicotine dependence, unspecified, uncomplicated
CPT/HCPCS: 99282; A9270-GY

== ENCOUNTER 2021-08-19 20:31 | Inpatient (IN) ==
[2021-08-19 21:54] LABS: Urine Appearance Clear; Urine Bilirubin Negative (Negative); Urine Blood Negative (Negative); Urine Color Amber; Urine Glucose Negative (Negative); Urine Ketones Trace (Negative); Urine Nitrite Negative (Negative); Urine Protein Negative (Negative); Urine Specific Gravity 1.028 (1.002-1.030); Urine Urobilinogen Positive (Negative)
[2021-08-19 21:57] LABS: Urine Benzodiazepine Screen None Detected (None Detect); Urine Cannabinoids Screen Presumptive Positive (None Detect); Urine Opiates Screen None Detected (None Detect)
[2021-08-19 22:09] LABS: ABS Lymphocytes 0.9 10^3/ul (1.0-4.8); ABS Monocytes 0.6 10^3/ul (0-0.8); ABS Neutrophils 3.4 10^3/ul (1.5-7.7); Eosinophil % 0.1 %; Hematocrit 40 % (42-52); Hemoglobin 13.2 g/dL (14.0-18.0); Lymphocyte % 17.2 %; Mean Corpuscular HGB Conc 33 g/dL (31-36); Mean Corpuscular Hemoglobin 28 pg (27-31); Mean Corpuscular Volume 83 fL (80-94); Platelet Count 260 10^3/uL (150-450); Red Blood Count 4.77 10^6 /uL (4.18-5.48); Red Cell Distribution Width 14 % (10-15); White Blood Count 4.9 10^3/uL (3.5-10.8)
[2021-08-19 22:25] LABS: ALT 15 U/L (7-52); AST 23 U/L (13-39); Albumin 4.5 g/dL (3.2-5.2); Albumin/Globulin Ratio 1.5 (1-3); Alkaline Phosphatase 51 U/L (35-149); Anion Gap 5 mmol/L (2-11); Blood Urea Nitrogen 11 mg/dL (6-24); CO2 Carbon Dioxide 27 mmol/L (22-32); Calcium 9.8 mg/dL (8.6-10.3); Chloride 103 mmol/L (101-111); Glucose 99 mg/dL (70-100); Sodium 135 mmol/L (135-145); Total Protein 7.5 g/dL (6.4-8.9); eGFR CKD-EPI 81.7 (>60)
[2021-08-19 22:27] LABS: Acetaminophen < 15 mcg/mL; Alcohol, S < 13 mg/dL (<13); Salicylate < 2.50 mg/dL (<30)
[2021-08-19 22:43] LABS: TSH Ultra Thyroid Stim Horm 1.75 mcIU/mL (0.34-5.60)
[2021-08-20] MEDS ORDERED: LORazepam 2 mg VIAL 1 ml IM ONE (05:36)
[2021-08-20] MEDS ORDERED: Droperidol 5 MG/2 ML 2 ML VIAL IM ONE (05:36)
[2021-08-20] MEDS ORDERED: Lorazepam PYXIS KEY PRN (05:36)
[2021-08-20] MEDS ORDERED: Al Hydrox/Mg Hydrox/Simet LIQ 30 ML UDC PO PRN (06:08)
[2021-08-20] MEDS ORDERED: DIPHENHYDRAMINE PO PRN (06:09)
[2021-08-20] MEDS ORDERED: chlorproMAZINE TAB 50 MG Q8H PRN AGITATION PO (06:09)
[2021-08-20] MEDS: Vitamin THERAPEUTIC TAB PO SCH (07:52)
[2021-08-21 08:20] LABS: HDL Cholesterol 70.2 mg/dL
[2021-08-21] MEDS: Vitamin THERAPEUTIC TAB PO SCH (09:25)
[2021-08-22] MEDS: Vitamin THERAPEUTIC TAB PO SCH (07:35)
[2021-08-22 08:34] VITALS: BP 117/58
== END 2021-08-22 14:40 | disposition home or self-care (01) | DRG 755 ==
LOC: ED 20:31 → BSU 08-20 06:05
PROVIDERS: ADMIT Psychiatry & Neurology Addiction Psychiatry; ATTEND Psychiatry & Neurology Psychiatry